=== PATIENT | male | born 1985 | race Caucasian/White ===

== ENCOUNTER 2020-12-09 14:04 | Emergency (ER) | payer OTHER ==
[~2020-12-09] VITALS: Ht 162.6 cm; Wt 104.3 kg
[2020-12-09] MEDS ORDERED: DIOVAN320 MG PO (14:25)
[2020-12-09] MEDS ORDERED: HYDROCHLOROTHIA25 M1 PO (14:25)
[2020-12-09] MEDS ORDERED: NORVASC10 MG PO (14:25)
[2020-12-09 15:44] LABS: ABSOLUTE NEUTROPHILS 5.5 thou/uL (1.4-8.2); BASOPHILS 0.9 % (0.0-2.0); HEMATOCRIT 44.6 % (42.0-52.0); HEMOGLOBIN 15.7 gm/dL (14.0-18.0); LYMPHOCYTES 29.1 % (24.0-44.0); MCH 30.8 pg (26.0-34.0); MCHC 35.1 g/dL (28.0-37.0); MCV 87.7 fL (80.0-100.0); MONOCYTES 5.4 % (1.0-8.0); PLATELET COUNT 361 thou/uL (150-400); POLYS 63.6 % (36.0-66.0); RBC 5.09 mil/uL (4.50-6.00); RDW 13.1 % (10.5-14.5); WBC 8.7 thou/uL (4.0-11.0)
[2020-12-09 15:50] LABS: ANION GAP 9 mmol/L (7-16); BUN 8 mg/dL (7-18); CHLORIDE 107 mmol/L (98-107); CO2 29 mmol/L (21-32); CREATININE 1.1 mg/dL (0.7-1.3); GLUCOSE 104 mg/dL (74-106); POTASSIUM 3.4 mmol/L (3.5-5.1); SODIUM 145 mmol/L (136-145)
[2020-12-09 16:00] LABS: ALBUMIN 3.7 g/dL (3.4-5.0); SGOT 25 U/L (15-37); SGPT 43 U/L (16-63); TOTAL BILIRUBIN 0.7 mg/dL (0.2-1.0); TOTAL PROTEIN 7.2 g/dL (6.4-8.2); TROPONIN-I <0.06 ng/mL (<0.06)
--- NOTE | 2020-12-09 16:19 | EKG ---
[place] [address] [facility] [place] [address] ELECTROCARDIOGRAM REPORT Name: TOMI LI Room #: REG [facility].R.#: [id number] Admission: 12/09/20 Attend Phys: Discharge: Date of : 83 Report #: [id number] [facility] ED Test Date: 2020-12-09 Test Time: 14:25:42 Pat Name: TOMI LI Department: Room: Gender: M [employer]: MELLO : 1985 Requested By: Malcolm Cruz Order Number: [id number] MD: Florentino Horton Measurements Intervals Andrews Rate: 81 P: 32 TX: 154 QRS: 18 QRSD: 116 T: 28 QT: 351 QTc: 408 Interpretive Statements Sinus rhythm Incomplete right bundle branch block ST elevation, consider anterolateral injury No previous ECG available for comparison Electronically Signed On 12-09-2020 16:19:33 CDT by Florentino Horton [email or web address] <ELECTRONICALLY SIGNED> By: Florentino Horton MD, [facility] 12/09/20 1619 1425 1425 Florentino Horton MD, FACC /EPI
[2020-12-09] MEDS ORDERED: PROMETH-CODEIN 65 ML PO (16:28)
[2020-12-09 16:31] VITALS: BP 158/101
== END 2020-12-09 16:31 | disposition home or self-care (01) ==
LOC: ER 14:04
PROVIDERS: Physician Assistant
DX: R05 Cough (principal); Z20.822 Contact with and (suspected) exposure to COVID-19; R11.10 Vomiting, unspecified; I10 Essential (primary) hypertension; Z79.899 Other long term (current) drug therapy

== ENCOUNTER → 2021-03-21 | Outpatient (CLI) | payer OTHER ==
[~2021-03-21] MED LIST: DIOVAN320 MG PO; HYDROCHLOROTHIA25 M1 PO; NORVASC10 MG PO; PROMETH-CODEIN 65 ML PO
== END ==
LOC: SJCVCIMAG 07:30
PROVIDERS: ATTEND Internal Medicine Cardiovascular Disease
DX: I07.1 Rheumatic tricuspid insufficiency (principal); I11.9 Hypertensive heart disease without heart failure